=== PATIENT | male | born 1980 | race Hispanic/Latino ===

== ENCOUNTER 2018-07-10 14:40 | Emergency (ER) | payer OTHER ==
[2018-07-10] MEDS ORDERED: AMOXICILLIN/POTASSIUM CLAV 875-125 TABLET PO ONE (15:12)
== END 2018-07-10 15:27 | disposition home or self-care (01) ==
LOC: EDH 14:40
DX: S50.872A Other superficial bite of left forearm, initial encounter (principal); S10.97XA Other superficial bite of unspecified part of neck, initial encounter; I10 Essential (primary) hypertension; E11.40 Type 2 diabetes mellitus with diabetic neuropathy, unspecified; Z72.0 Tobacco use; Y04.1XXA Assault by human bite, initial encounter; Y93.89 Activity, other specified; Y92.89 Other specified places as the place of occurrence of the external cause; Y99.8 Other external cause status

== ENCOUNTER 2018-08-09 22:18 | Emergency (ER) | payer OTHER ==
[2018-08-10] MEDS ORDERED: NAPROXEN 500 MG TABLET ONE (00:12)
== END 2018-08-10 00:15 | disposition home or self-care (01) ==
LOC: EDH 22:18
DX: S06.0X0A Concussion without loss of consciousness, initial encounter (principal); S16.1XXA Strain of muscle, fascia and tendon at neck level, initial encounter; I10 Essential (primary) hypertension; E11.9 Type 2 diabetes mellitus without complications; Y04.8XXA Assault by other bodily force, initial encounter; Y93.89 Activity, other specified; Y92.89 Other specified places as the place of occurrence of the external cause; Y99.8 Other external cause status

== ENCOUNTER 2018-10-22 17:44 | Emergency (ER) | payer OTHER ==
[2018-10-22] MEDS ORDERED: ACETAMINOPHEN EXTRA STRENGTH 500 MG TABLET ONE ×2 (18:11→18:48)
== END 2018-10-22 19:03 | disposition home or self-care (01) ==
LOC: EDH 17:44
DX: S06.0X0A Concussion without loss of consciousness, initial encounter (principal); S02.2XXA Fracture of nasal bones, initial encounter for closed fracture; E11.40 Type 2 diabetes mellitus with diabetic neuropathy, unspecified; I10 Essential (primary) hypertension; Z79.4 Long term (current) use of insulin; Y04.0XXA Assault by unarmed brawl or fight, initial encounter; Y93.89 Activity, other specified; Y92.69 Other specified industrial and construction area as the place of occurrence of the external cause; Y99.8 Other external cause status

== ENCOUNTER 2018-11-03 14:19 | Emergency (ER) | payer OTHER | END 2018-11-03 15:34 | disposition home or self-care (01) | LOC: EDH 14:19 | DX: R51 Headache (principal); E11.9 Type 2 diabetes mellitus without complications; I10 Essential (primary) hypertension; Z79.4 Long term (current) use of insulin | CPT/HCPCS: 99281 ==

== ENCOUNTER → 2019-02-07 | Outpatient (CLI) | payer BC ==
[~2019-02-07] MED LIST: GADODIAMIDE 10 MMOL/20 ML VIAL IV ONE
== END | disposition home or self-care (01) ==
LOC: RAH 08:33
PROVIDERS: ATTEND Neurological Surgery
DX: J32.0 Chronic maxillary sinusitis (principal); G93.0 Cerebral cysts; G91.9 Hydrocephalus, unspecified
CPT/HCPCS: 70553; A9579